=== PATIENT | female | born 1985 | race African-American/Black ===

== ENCOUNTER 2021-10-21 23:53 | Emergency (ER) | payer SELFPAY ==
[~2021-10-21] VITALS: Ht 175.3 cm; Wt 104.0 kg
[2021-10-21 23:58] VITALS: BP 136/80
--- NOTE | 2021-10-22 00:05 | NUR ---
PT TAKEN TO ER BED 03
--- NOTE | 2021-10-22 00:44 | NUR ---
DR. PATHAK AT BEDSIDE FOR EVALUATION
[2021-10-22] MEDS ORDERED: KETOROLAC 60 MG/2 ML VIAL IM ONE ×2 (00:49→00:50)
--- NOTE | 2021-10-22 00:58 | NUR ---
covering primary nurse for lunch. pt medication per ERMD orders. pt tolerated well.
--- NOTE | 2021-10-22 01:20 | NUR ---
36 Y/O F BIB SELF WITH C/O RIGHT LOWER KNEE PAIN THAT STARTED ON 10/21/21. PT STATES THAT SHE STANDS UP ALL DAY FOR WORK AND HER KNEE WILLL BEGIN TO BECOME WEAK AND PAINFUL. PT STATES THIS HAPPENS SOMTIMES BUT YESTERDAY THE PAIN BECAME UNBEARABLE.PT DID NOT TAKE ANY PAIN MEDS. DENIES N/V/D; AAOX4 WITH UNEVEN GAIT DUE TO PAIN , PT IS STEADY; LUNGS CLEAR BL; HR EVEN AND REGULAR; PT DENIES ANY FEVER, CP, SOB, OR COUGH AT THIS TIME; VSS; HOB ELEVATED; BEDRAILS UP X2; BED DOWN. ER MADE AWARE OF PT STATUS. PMH:NONE ALLERGIES: NONE
--- NOTE | 2021-10-22 02:25 | NUR ---
Patient appears to be resting comfortably in bed. Vital Signs within normal limits. Respirations even and unlabored.
[2021-10-22] MEDS ORDERED: NAPR-54 PO (02:57)
[2021-10-22 03:17] VITALS: BP 138/80
--- NOTE | 2021-10-22 03:17 | NUR ---
Patient discharged with v/s stable. Written and verbal after care instructions given and explained. PT DISCHARGED WITH CRUTCHES Patient alert, oriented and verbalized understanding of instructions. Ambulatory with steady gait. All questions addressed prior to discharge. ID band removed. Patient advised to follow up with PMD. Rx of NAPROSYN given. Opportunity to ask questions provided and answered.
--- NOTE | 2021-10-22 03:25 | NUR ---
The patient's care was reviewed and supervised by Raissa Briscoe RN.
== END 2021-10-22 03:17 | disposition home or self-care (01) ==
LOC: MED 23:53
DX: S83.91XA Sprain of unspecified site of right knee, initial encounter (principal); M17.11 Unilateral primary osteoarthritis, right knee; Z79.899 Other long term (current) drug therapy; X58.XXXA Exposure to other specified factors, initial encounter; Y93.89 Activity, other specified; Y92.89 Other specified places as the place of occurrence of the external cause; Y99.8 Other external cause status
CPT/HCPCS: 73562; 96372; 99285; J1885; Q0092